=== PATIENT | male | born 1950 | race Caucasian/White ===

== ENCOUNTER 2020-10-16 12:55 | Emergency (ER) | payer MEDICARE ==
[~2020-10-16] VITALS: Ht 170.2 cm; Wt 65.9 kg
[2020-10-16 13:29] VITALS: BP 114/64
== END 2020-10-16 17:10 | disposition home or self-care (01) ==
LOC: ER 12:57
DX: T83.9XXA Unspecified complication of genitourinary prosthetic device, implant and graft, initial encounter (principal); Z87.448 Personal history of other diseases of urinary system
CPT/HCPCS: 76775; 99284

== ENCOUNTER 2021-02-27 12:33 | Emergency (ER) | payer MEDICARE ==
[~2021-02-27] VITALS: Ht 170.2 cm; Wt 67.0 kg
[2021-02-27] MEDS ORDERED: LIDOcaine 1% W/epiNEPHrine 1:200,000 10ml vial IJ ONE (14:10)
[2021-02-27] MEDS ORDERED: bacitracin 15gm ointment TP ONE (14:10)
[2021-02-27 15:26] VITALS: BP 181/118
[2021-02-27] MEDS ORDERED: cephalexin 500mg capsule PO ONE (15:55)
[2021-02-27] MEDS ORDERED: acetaminophen 325mg tablet PO ONE (15:55)
[2021-02-27] MEDS ORDERED: ONDA4TAB6 PO (15:55)
[2021-02-27] MEDS ORDERED: CEPH-585 PO (15:55)
[2021-02-27] MEDS ORDERED: HYDR-3964 PO (15:55)
== END 2021-02-27 16:29 | disposition home or self-care (01) ==
LOC: ER 12:34
DX: S61.307A Unspecified open wound of left little finger with damage to nail, initial encounter (principal); Z79.2 Long term (current) use of antibiotics; Z79.899 Other long term (current) drug therapy; X58.XXXA Exposure to other specified factors, initial encounter; Y93.89 Activity, other specified; Y92.89 Other specified places as the place of occurrence of the external cause; Y99.8 Other external cause status
CPT/HCPCS: 12002; 73140; 99284

== ENCOUNTER 2021-03-01 06:45 | Emergency (ER) | payer MEDICARE ==
[~2021-03-01] VITALS: Ht 170.2 cm; Wt 69.3 kg
[~2021-03-01 06:45] MED LIST: CEPH-585 PO; HYDR-3964 PO; ONDA4TAB6 PO
[2021-03-01 06:48] VITALS: BP 133/68
--- NOTE | 2021-03-01 08:49 | NUR ---
DRESSING APPLIED BY RN ON DISCHARGE
== END 2021-03-01 08:53 | disposition home or self-care (01) ==
LOC: ER 06:45
DX: S61.211D Laceration without foreign body of left index finger without damage to nail, subsequent encounter (principal); S61.217D Laceration without foreign body of left little finger without damage to nail, subsequent encounter; Z48.00 Encounter for change or removal of nonsurgical wound dressing; Z79.2 Long term (current) use of antibiotics; Z79.899 Other long term (current) drug therapy; X58.XXXD Exposure to other specified factors, subsequent encounter
CPT/HCPCS: 99281